=== PATIENT | female | born 1970 | race Caucasian/White ===

== ENCOUNTER 2019-04-05 08:56 | Outpatient (CLI) | payer OTHER ==
[2019-04-05 09:26] LABS: #Basophils 0.1 thou/uL (0.0-0.2); #Eosinphils 0.4 thou/uL (0.0-0.7); #Lymphocytes 3.8 thou/uL (1.20-3.40); #Monocytes 0.5 thou/uL (0.11-0.59); #Neutrophils 6.6 thou/uL (1.40-6.50); %Basophils 1.1 % (0.0-1.0); %Eosinophils 3.2 % (0.0-10.0); %Lymphocytes 33.2 % (21.0-51.0); %Monocytes 4.4 % (0.0-10.0); %Neutrophils 58.1 % (42.0-75.0); Hemoglobin 15.1 g/dL (12.0-16.0); Mean Corpuscular HGB CONC 32.7 g/dL (32.0-36.0); Mean Corpuscular Hemoglobin 29.2 pg (27.0-31.0); Mean Corpuscular Volume 89.2 fL (78.0-98.0); Mean Platelet Volume 6.8 fL (7.4-10.4); Platelet Count 194 thou/uL (130-400); RBC Distribution Width 12.3 % (11.5-14.5); Red Blood Cell (RBC) Count 5.16 mill/uL (4.20-5.40); White Blood Cell (WBC) Count 11.4 thou/uL (4.8-10.8)
[2019-04-05 09:37] LABS: ALT (SGPT) 12 U/L (8-55); AST (SGOT) 19 U/L (5-34); Albumin 3.9 g/dL (3.5-5.0); Alkaline Phosphatase 67 U/L (40-150); Anion Gap 15 mmol/L (10-20); BUN (Urea Nitrogen) 9 mg/dL (7.0-18.7); Bilirubin, Total 0.8 mg/dL (0.2-1.2); Calc. Creatinine Clearance 0 mL/min (70-130); Calcium 9.2 mg/dL (7.8-10.44); Carbon Dioxide 28 mmol/L (22-29); Cardiac Risk 3.1 (Less than 4.5); Chloride 101 mmol/L (98-107); Cholesterol 80 mg/dl (< 200 Desired); Estimated GFR-MDRD 73; Globulin 3.9 g/dL (2.4-3.5); Glucose 146 mg/dL (70-105); HDL Cholesterol 26 mg/dL (>60 Neg Risk); LDL Cholesterol, Calculated 22 mg/dL; Potassium 3.6 mmol/L (3.5-5.1); Protein, Total 7.8 g/dL (6.0-8.3); Sodium 140 mmol/L (136-145); Triglycerides 158 mg/dL (Less than 150)
[2019-04-05 09:51] LABS: Thyroid Stimulating Hormone 2.8979 uIU/mL (0.35-4.94)
--- NOTE | 2019-04-05 09:55 | CT ---
CT HEAD NONCONTRAST: Date 04/05/19 INDICATION: Dizziness and migraine headache. FINDINGS: There is no intracranial hemorrhage, mass effect, midline shift, or ventriculomegaly. Calvarium is in tact. There is minimal mucosal thickening. IMPRESSION: No acute intracranial abnormalities. POS: [facility]
[2019-04-05 17:17] LABS: Hemoglobin A1c 7.2 % (4.0-6.0)
[2019-04-05 17:32] LABS: Vitamin D, 25 Hydroxy 30.8 ng/ml (> 30.0)
== END 2019-04-05 08:57 | disposition home or self-care (01) ==
LOC: MADLABBHPM 08:56
PROVIDERS: ATTEND Family Medicine
DX: Z04.89 Encounter for examination and observation for other specified reasons (principal); G43.009 Migraine without aura, not intractable, without status migrainosus; R42 Dizziness and giddiness; E78.2 Mixed hyperlipidemia; E55.9 Vitamin D deficiency, unspecified; E11.9 Type 2 diabetes mellitus without complications
CPT/HCPCS: 36415; 70450; 80053; 80061; 82306; 83036; 84443; 85025

== ENCOUNTER 2019-12-05 12:28 | Outpatient (CLI) | payer OTHER ==
[2019-12-05 19:14] LABS: %Lymphocytes 44.2 % (21.0-51.0); %Monocytes 4.4 % (0.0-10.0); %Neutrophils 47.9 % (42.0-75.0); Hemoglobin 14.6 g/dL (12.0-16.0); Mean Corpuscular HGB CONC 31.8 g/dL (32.0-36.0); Mean Corpuscular Hemoglobin 29.9 pg (27.0-31.0); Mean Corpuscular Volume 94.1 fL (78.0-98.0); Mean Platelet Volume 7.7 fL (7.4-10.4); Platelet Count 225 thou/uL (130-400); RBC Distribution Width 12.6 % (11.5-14.5)
[2019-12-05 19:15] LABS: #Basophils 0.1 thou/uL (0.0-0.2); #Eosinphils 0.3 thou/uL (0.0-0.7); #Lymphocytes 5.7 thou/uL (1.20-3.40); #Monocytes 0.6 thou/uL (0.11-0.59); #Neutrophils 6.3 thou/uL (1.40-6.50); %Eosinophils 2.5 % (0.0-10.0)
--- NOTE | 2019-12-05 19:47 | RAD ---
ABDOMEN ONE VIEW: Indication: Generalized abdominal pain. FINDINGS: There is a moderate amount of retained stool within the colon. Bowel gas pattern is nonspecific but w ithout overt evidence of obstruction. Lung bases are clear. No suspicious calcifications evident. No acute osseous abnormality is noted. IMPRESSION: Mild amount of retained stool within the colon. POS: [facility]
== END 2019-12-05 12:29 | disposition home or self-care (01) ==
LOC: MADRAD 12:28
PROVIDERS: ATTEND Family Medicine
DX: D72.829 Elevated white blood cell count, unspecified (principal); R10.84 Generalized abdominal pain; R42 Dizziness and giddiness; R00.2 Palpitations; K59.00 Constipation, unspecified
CPT/HCPCS: 74018; 85025; 93005; 93010

== ENCOUNTER 2020-01-30 13:44 | Outpatient (CLI) | payer OTHER ==
--- NOTE | 2020-01-30 14:00 | RAD ---
XR Hip Rt 2-3 View HISTORY: Right hip pain FINDINGS: No fracture or dislocation is identified. Mild degenerative changes are present
== END 2020-01-30 13:45 | disposition home or self-care (01) ==
LOC: MADRAD 13:44
PROVIDERS: ATTEND Family Medicine
DX: M25.551 Pain in right hip (principal)

== ENCOUNTER 2021-05-31 16:13 | Outpatient (CLI) | payer OTHER | END 2021-05-31 16:14 | disposition home or self-care (01) | LOC: MADRAD 16:13 | PROVIDERS: ATTEND Family Medicine | DX: J20.9 Acute bronchitis, unspecified (principal); R05.8 Other specified cough | CPT/HCPCS: 71046 ==